=== PATIENT | male | born 1950 | race Asian ===

== ENCOUNTER 2018-10-19 16:30 | Emergency (ER) | payer MEDICARE, MEDICAID, OTHER ==
[2018-10-19 18:25] LABS: TROPONIN-I < 0.012 ng/ml (0.000-0.120)
== END 2018-10-19 19:15 | disposition home or self-care (01) ==
LOC: E/R 16:30
DX: I12.9 Hypertensive chronic kidney disease with stage 1 through stage 4 chronic kidney disease, or unspecified chronic kidney disease (principal); N18.3 Chronic kidney disease, stage 3 (moderate); I25.2 Old myocardial infarction; E11.22 Type 2 diabetes mellitus with diabetic chronic kidney disease; Z79.4 Long term (current) use of insulin; Z86.73 Personal history of transient ischemic attack (TIA), and cerebral infarction without residual deficits
CPT/HCPCS: 84484; 99283-25

== ENCOUNTER 2018-12-19 03:51 | Emergency (ER) | payer MEDICARE, MEDICAID ==
[2018-12-19 04:38] LABS: ADD MAN DIFF? NO
[2018-12-19 04:40] LABS: WHITE BLOOD COUNT 12.8 10^3/ul (4.8-10.8)
[2018-12-19 04:40] LABS: BASOPHIL # 0.1 10^3/ul (0.0-0.1); BASOPHILS % 0.7 % (0.0-2.0); EOSINOPHILS # 0.6 10^3/ul (0.0-0.5); HEMATOCRIT 40.5 % (42.0-52.0); HEMOGLOBIN 13.3 g/dl (14.0-18.0); LYMPHOCYTES # 1.3 10^3/ul (0.8-2.9); LYMPHOCYTES % 10.2 % (15.0-51.0); MEAN CORPUSCULAR HEMOGLOBIN 27.8 pg (29.0-33.0); MEAN CORPUSCULAR HGB CONC 32.8 g/dl (32.0-37.0); MEAN CORPUSCULAR VOLUME 84.7 fl (82.0-101.0); MEAN PLATELET VOLUME 8.8 fl (7.4-10.4); MONOCYTE # 0.8 10^3/ul (0.3-0.9); MONOCYTES % 5.9 % (0.0-11.0); NEUTROPHILS % 77.8 % (39.0-77.0); PLATELET COUNT 302 10^3/UL (140-415); RED BLOOD COUNT 4.78 10^6/ul (4.70-6.10); RED CELL DISTRIBUTION WIDTH 12.3 % (11.5-14.5)
[2018-12-19 04:47] LABS: ANION GAP 13 (5-13); BLOOD UREA NITROGEN 34 mg/dl (7-20); CALCIUM 9.6 mg/dl (8.4-10.2); CARBON DIOXIDE 25 mmol/L (21-31); CHLORIDE 102 mmol/L (97-110); CREATININE 2.12 mg/dl (0.61-1.24); Estimated GFR 31 mL/min (>60); GLUCOSE 61 mg/dl (70-220); POTASSIUM 4.5 mmol/L (3.5-5.1); SODIUM 140 mmol/L (135-144)
[2018-12-19 04:48] LABS: ETHANOL < 10.0 mg/dl (0-0)
[2018-12-19 04:58] LABS: TROPONIN-I 0.014 ng/ml (0.000-0.120)
== END 2018-12-19 05:24 | disposition home or self-care (01) ==
LOC: E/R 03:51
DX: E11.649 Type 2 diabetes mellitus with hypoglycemia without coma (principal); N28.9 Disorder of kidney and ureter, unspecified; R44.2 Other hallucinations; I10 Essential (primary) hypertension; I25.2 Old myocardial infarction; Z86.73 Personal history of transient ischemic attack (TIA), and cerebral infarction without residual deficits; Z79.4 Long term (current) use of insulin
CPT/HCPCS: 36415; 70450; 80048; 80307; 82962; 84484; 85025; 93005; 99285-25